=== PATIENT | male | born 1990 | race Caucasian/White ===

== ENCOUNTER 2019-09-17 14:38 | Inpatient (IN) | payer MEDICAID ==
[2019-09-17 15:00] VITALS: BP 123/72
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
[2019-09-17] MEDS: MORPHINE SULFATE 4 MG/ML VIAL. IV PRN ×2 (18:38→23:01)
[2019-09-17 19:00] VITALS: BP 126/80
[2019-09-17 23:20] VITALS: BP 108/69
[2019-09-18 03:25] VITALS: BP_SYST 120; BP_SYST 125; BP_DIAS 65; BP_DIAS 73
[2019-09-18 07:00] VITALS: BP 122/75
[2019-09-18] MEDS: MORPHINE SULFATE 4 MG/ML VIAL. IV PRN (09:06)
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
[2019-09-18] MEDS ORDERED: HYDR-2761 PO (11:16)
[2019-09-18 11:47] VITALS: BP 116/69
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
--- NOTE | 2019-09-18 12:15 | NUR ---
PT DISCHARGED TO HOME WITH FRIENDS. DISCHARGE TEACHING COMPLETED. THEY BOTH VERBALIZED UNDERSTANDING.
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
== END 2019-09-18 12:15 | disposition home or self-care (01) | DRG 914 ==
LOC: 6 SOUTH 14:38
PROVIDERS: ADMIT Internal Medicine; ATTEND Internal Medicine
DX: S41.141A Puncture wound with foreign body of right upper arm, initial encounter (principal); T79.7XXA Traumatic subcutaneous emphysema, initial encounter; G62.9 Polyneuropathy, unspecified; F12.90 Cannabis use, unspecified, uncomplicated; Z20.828 Contact with and (suspected) exposure to other viral communicable diseases; W34.09XA Accidental discharge from other specified firearms, initial encounter; Y93.89 Activity, other specified; Y92.89 Other specified places as the place of occurrence of the external cause; Y99.8 Other external cause status
CPT/HCPCS: 96374; 96376; J2270; 99285-25; G0378